=== PATIENT | male | born 1985 | race Caucasian/White ===

== ENCOUNTER 2021-06-12 02:08 | Emergency (ER) | payer OTHER ==
[~2021-06-12] VITALS: Ht 188 cm; Wt 107.4 kg
[2021-06-12 03:35] LABS: BASO # 0.1 10^3/uL (0.0-0.2); BASO % 0.9 % (0.0-1.0); EOS # 0.2 10^3/uL (0.0-0.5); EOS % 2.8 % (0.0-3.0); HEMATOCRIT 43.9 % (42.0-52.0); HEMOGLOBIN 15.2 g/dl (13.5-17.5); LYMPH # 2.8 10^3/uL (1.5-5.0); MEAN CORPUSCULAR HEMOGLOBIN 30.2 pg (27.0-33.0); MEAN CORPUSCULAR HGB CONC 34.6 g/dl (32.0-36.5); MEAN CORPUSCULAR VOLUME 87.1 fl (80.0-96.0); MONO # 0.6 10^3/uL (0.0-0.8); MONO % 7.9 % (2.0-8.0); NEUTROPHILS # 4.1 10^3/uL (1.5-8.5); PLATELET COUNT, AUTOMATED 305 10^3/uL (150-450); RED BLOOD COUNT 5.04 10^6/uL (4.30-6.10); WHITE BLOOD COUNT 7.9 10^3/uL (4.0-10.0)
[2021-06-12 03:46] LABS: INR 0.91; PROTHROMBIN TIME 12.7 SECONDS (12.7-14.5)
[2021-06-12 03:56] LABS: ALBUMIN 3.7 GM/DL (3.2-5.2); ALT/SGPT 31 U/L (12-78); BILIRUBIN,DIRECT 0.2 MG/DL (0.0-0.2); BILIRUBIN,TOTAL 0.8 MG/DL (0.2-1.0); BLOOD UREA NITROGEN 20 MG/DL (7-18); CALCIUM LEVEL 9.2 MG/DL (8.5-10.1); CARBON DIOXIDE LEVEL 29 MEQ/L (21-32); CHLORIDE LEVEL 107 MEQ/L (98-107); CREATININE FOR GFR 0.97 MG/DL (0.70-1.30); GLOMERULAR FILTRATION RATE > 60.0 (>60); GLUCOSE, FASTING 99 MG/DL (70-100); LIPASE 142 U/L (73-393); POTASSIUM SERUM 4.2 MEQ/L (3.5-5.1); SODIUM LEVEL 138 MEQ/L (136-145); TOTAL PROTEIN 6.5 GM/DL (6.4-8.2)
[2021-06-12 03:57] LABS: CK-MB VALUE MASS 1.6 NG/ML (<3.6); MB/CK RELATIVE INDEX 1.25 (< OR =4)
[2021-06-12 05:47] LABS: CK-MB VALUE MASS 1.6 NG/ML (<3.6); MB/CK RELATIVE INDEX 1.44 (< OR =4)
[2021-06-12 06:43] LABS: D-DIMER QUANT < 270 ng/ml (<500)
[2021-06-12] MEDS ORDERED: KETOROLAC 30 MG/ML 1ML VIAL IV ONE (07:05)
[2021-06-12] MEDS ORDERED: ISOVUE-370 76% 100ML VIAL As Ordered ONE (07:11)
[2021-06-12] MEDS ORDERED: DOXY-342 PO (08:58)
[2021-06-12 09:27] VITALS: BP 148/75
== END 2021-06-12 09:38 | disposition home or self-care (01) ==
LOC: M ED 02:08
DX: J18.9 Pneumonia, unspecified organism (principal); R07.89 Other chest pain; R00.1 Bradycardia, unspecified
CPT/HCPCS: 71045; 71275; 80048; 80076; 82550; 82553; 83690; 84484; 85025; 85379; 85610; 87426; 87428; 93005; 93041; 94760; 96374; 99285; J1885; Q9967